=== PATIENT | male | born 1995 | race Caucasian/White ===

== ENCOUNTER 2016-08-29 22:00 | Emergency (ER) | payer OTHER ==
[2016-08-29] MEDS ORDERED: NS 2,000 ML IV ONE (22:10)
--- NOTE | 2016-08-29 22:14 | EDPHY ---
H & P HPI/ROS: HPI CHIEF COMPLAINT: Witnessed seizure HISTORY OF PRESENT ILLNESS: This patient 21-year-old male he denies having any significant medical history does not take any daily medications, presents emergency room by EMS with a witnessed generalized tonic-clonic seizure with a postictal state witnessed by EMS. Per EMS they report that this patient had a generalized tonic-clonic seizure witnessed by bystanders it is reported by roommates that last 84 seconds. Postictal state reported by EMS. No bowel bladder incontinence no tongue laceration. Also noted by EMS that the patient' s heart rate is in the 160s. Patient denies drug use or alcohol use. He does have a history of drinking alcohol occasionally, Xanax use and cocaine use but is adamant that he did not take any this recently. Patient denies history of seizures. Upon arrival here to the emergency room the patient is alert and orient x4, GCS 15, tachycardic in the 150s. Has no medical complaints. Past Medical History: No significant medical history Past Surgical History: No significant surgical history Social History: Occasional alcohol use, history of cocaine and Xanax, nothing recent, [employer] student Family History: Noncontributory ROS REVIEW OF SYSTEMS: A comprehensive 10 point review of systems is otherwise negative aside from elements mentioned in the history of present illness. Exam Constitutional triage nursing summary reviewed, vital signs reviewed, awake/ alert. Eyes normal conjunctivae and sclera, EOMI, pupils are equal round react to light however large 5 mm, reactive to light HENT oropharynx shows no tongue laceration, normal inspection, atraumatic, moist mucus membranes, no epistaxis, neck supple/ no meningismus, no raccoon eyes. Respiratory clear to auscultation bilaterally, normal breath sounds, no respiratory distress, no wheezing. Cardiovascular tachycardic , regular rhythm, no murmur, no edema, distal pulses normal. Gastrointestinal soft, non-tender, no rebound, no guarding, normal bowel sounds, no distension, no pulsatile mass. Genitourinary no CVA tenderness. Musculoskeletal no midline vertebral tenderness, full range of motion, no calf swelling, no tenderness of extremities, no meningismus, good pulses, neurovascularly intact. Skin pink, warm, & dry, no rash, skin atraumatic. Neurologic awake, alert and oriented x 3, AAOx3, moves all 4 extremities equally, motor intact, sensory intact, CN II-XII intact, normal cerebellar, normal vision, normal speech. Psychiatric normal mood/affect. Heme/Lymph/Immune no lymphadenopathy. Differential Diagnosis: Includes but is not limited to in a particular order, seizure, generalized tonic-clonic seizure, drug intoxication, tachycardia, electrolyte disturbance, infection Medical Decision Making: Plan for this patient IV establishment full court monitor, EKG, CT head due to first-time seizure, drug screen Re-evaluation: EKG interpretation by me on record in [employer] system. Impression time of EKG 2206, this is sinus tachycardia rate of 156. CT scan of the head without IV contrast for seizure. The results of the study are negative for acute intracranial abnormality. The study was read by Dr. Shanks I viewed the images myself on the PACS system. 2236: Re-evaluation at this time patient has no complaints. Friends at bedside witnessed this patient a generalized tonic-clonic they report 84 second seizure. They report prior to the seizure he was resting on the couch. Made a loud noise in a turned over and he was having generalized tonic-clonic seizure. Currently at this time heart rate 130s. Tachycardic. Back from CT scan shows nothing acute. Blood work and drug screen are pending. 2251: Labs reviewed show a low bicarb of 10 consistent with probably acute seizure. 2253: Patient's heart rate down to 119. Patient provide a urine sample at this time. ED x-ray chest one view: Negative for acute cardiopulmonary disease. Image interpreted myself. 2304: Patient was able to provide urine sample. Urine pending. Patient tachycardia improving. Blood work review shows anion gap acidosis consistent with most likely lactic acidosis from seizure. Bicarb 10. Witnessed seizure activity by roommates. I will recommend this patient follows up with Neurology do not drive or ride a bicycle until cleared by Neurology. Refrain from drinking alcohol or drug use. Obviously return emergency room if there is further seizure activity. This been no further seizure activity witnessed here in the emergency room. 2317: I discussed return precautions with the patient and roommates. I recommend no driving no riding a bicycle, until cleared by Neurology. Recommend close follow-up with Neurology. Return obviously have evidence of a further seizure. Discussed with remains and patient at bedside. They understand to watch him tonight. Drug screen noted positive for benzos, marijuana cocaine we did not give any benzos here in the emergency room. Most likely cause of acute seizure. Recommend refraining from doing drugs. Source: Patient Constitutional: Initial Vital Signs Temperature (C) 36.9 C 08/29/16 22:05 Heart Rate 164 H 08/29/16 22:05 Respiratory Rate 16 08/29/16 22:05 Blood Pressure 160/101 H 08/29/16 22:05 O2 Sat (%) 96 08/29/16 22:05 O2 Delivery Mode Room Air Allergies/Adverse Reactions: No Known Allergies Allergy (Unverified 08/29/16 22:17) Home Medications: Medication Instructions Recorded NK [No Known Home Meds] 08/29/16 Medical Decision Making - Diagnostics Imaging Results: Imaging Impressions Chest X-Ray 08/29/16 22:11 Impression: Normal. Head CT 08/29/16 22:11 Impression: Normal CT of the head. Findings and recommendations discussed with Jerome Dietrich MD at 2230 hour, . Final report concurs with initial preliminary interpretation. - Data Points Laboratory Results: Laboratory Results 08/29/16 22:00 08/29/16 22:00 08/29/16 08/29/16 08/29/16 22:50 22:00 22:00 WBC RBC Hgb Hct MCV MCH MCHC RDW Plt Count MPV Neut % (Auto) Lymph % (Auto) [place] % (Auto) Eos % (Auto) Baso % (Auto) Nucleat RBC Rel Count Absolute Neuts (auto) Absolute Lymphs (auto) Absolute Monos (auto) Absolute Eos (auto) Absolute Basos (auto) Absolute Nucleated RBC Immature Gran % Immature Gran # PT 14.1 SEC SEC (12.0-15.0) INR 1.10 (0.83-1.16) APTT 25.9 SEC SEC (23.0-38.0) Sodium 143 mEq/L mEq/L (134-144) Potassium 3.4 mEq/L L mEq/L (3.5-5.2) Chloride 94 mEq/L L mEq/L (97-110) Carbon Dioxide 10 mEq/l L mEq/l (22-31) Anion Gap 39 mEq/L H mEq/L (8-16) BUN 6 mg/dL L mg/dL (7-23) Creatinine 1.1 mg/dL mg/dL (0.7-1.3) Estimated GFR > 60 Glucose 159 mg/dL H mg/dL (70-100) Calcium 10.5 mg/dL H mg/dL (8.5-10.4) Magnesium 2.5 mg/dL H mg/dL (1.6-2.3) Total Bilirubin 1.1 mg/dL mg/dL (0.1-1.4) Conjugated Bilirubin 0.6 mg/dL H mg/dL (0.0-0.5) Unconjugated Bilirubin 0.5 mg/dL mg/dL (0.0-1.1) AST 92 IU/L H IU/L (17-59) ALT 78 IU/L H IU/L (21-72) Alkaline Phosphatase 93 IU/L IU/L (38-126) Creatine Kinase 173 IU/L IU/L (0-224) CK-MB (CK-2) Fraction 0.92 ng/mL ng/mL (0-3.19) Troponin I < 0.012 ng/mL ng/mL (0-0.034) Total Protein 9.1 g/dL H g/dL (6.3-8.2) Albumin 5.6 g/dL H g/dL (3.5-5.0) Urine Opiates Screen NEGATIVE (NEGATIVE) Urine Barbiturates NEGATIVE (NEGATIVE) Ur Phencyclidine Scrn NEGATIVE (NEGATIVE) Ur Amphetamine Screen NEGATIVE (NEGATIVE) U Benzodiazepines Scrn NON-NEGATIVE H (NEGATIVE) Urine Cocaine Screen NON-NEGATIVE H (NEGATIVE) U Marijuana (THC) Screen NON-NEGATIVE H (NEGATIVE) Ethyl Alcohol < 10 mg/dL mg/dL (0-10) 08/29/16 22:00 WBC 16.63 10^3/uL H 10^3/uL (3.80-9.50) RBC 5.47 10^6/uL 10^6/uL (4.40-6.38) Hgb 17.5 g/dL g/dL (13.7-17.5) Hct 52.4 % H % (40.0-51.0) MCV 95.8 fL fL (81.5-99.8) MCH 32.0 pg pg (27.9-34.1) MCHC 33.4 g/dL g/dL (32.4-36.7) RDW 12.2 % % (11.5-15.2) Plt Count 250 10^3/uL 10^3/uL (150-400) MPV 10.6 fL fL (8.7-11.7) Neut % (Auto) 56.8 % % (39.3-74.2) Lymph % (Auto) 28.3 % % (15.0-45.0) [place] % (Auto) 14.0 % H % (4.5-13.0) Eos % (Auto) 0.3 % L % (0.6-7.6) Baso % (Auto) 0.2 % L % (0.3-1.7) Nucleat RBC Rel Count 0.0 % % (0.0-0.2) Absolute Neuts (auto) 9.45 10^3/uL H 10^3/uL (1.70-6.50) Absolute Lymphs (auto) 4.70 10^3/uL H 10^3/uL (1.00-3.00) Absolute Monos (auto) 2.32 10^3/uL H 10^3/uL (0.30-0.80) Absolute Eos (auto) 0.05 10^3/uL 10^3/uL (0.03-0.40) Absolute Basos (auto) 0.04 10^3/uL 10^3/uL (0.02-0.10) Absolute Nucleated RBC 0.00 10^3/uL 10^3/uL (0-0.01) Immature Gran % 0.4 % % (0.0-1.1) Immature Gran # 0.07 10^3/uL 10^3/uL (0.00-0.10) PT INR APTT Sodium Potassium Chloride Carbon Dioxide Anion Gap BUN Creatinine Estimated GFR Glucose Calcium Magnesium Total Bilirubin Conjugated Bilirubin Unconjugated Bilirubin AST ALT Alkaline Phosphatase Creatine Kinase CK-MB (CK-2) Fraction Troponin I Total Protein Albumin Urine Opiates Screen Urine Barbiturates Ur Phencyclidine Scrn Ur Amphetamine Screen U Benzodiazepines Scrn Urine Cocaine Screen U Marijuana (THC) Screen Ethyl Alcohol Medications Given: Discontinued Medications Sodium Chloride (Ns) 2,000 mls @ 0 mls/hr IV ONCE ONE PRN Reason: Wide Open Stop: 08/29/16 22:11 Last Admin: 05/16/17 22:22 Dose: 2,000 mls Departure - Departure Disposition: Home, Routine, Self-Care Clinical Impression: Seizure, Cocaine abuse Condition: Good Instructions: New-Onset Seizure in Adults (ED) Additional Instructions: 1. Stay well-hydrated. 2. Do not drive or ride a bicycle into your cleared by Neurology to do so. 3. Refrain from drinking alcohol or doing any drugs. 4. If you have recurrent seizure please return to the emergency room. Referrals: Patient,NotPresent [Unknown] - As per Instructions Hung James MD [Medical Doctor] - As per Instructions
--- NOTE | 2016-08-29 22:14 | CPEKG ---
Heart Rate: 156 RR Interval: 385 P-R Interval: 97 QRSD Interval: 98 QT Interval: 296 QTC Interval: 477 P Leedey: 0 QRS Leedey: 109 T Wave Leedey: -89 EKG Severity - ABNORMAL ECG - EKG Impression: SINUS TACHYCARDIA EKG Impression: PROBABLE RVH W/ SECONDARY REPOL ABNORMALITY EKG Impression: INFERIOR Q WAVES, PROBABLY NORMAL VARIATION EKG Impression: LATERAL Q WAVES, PROBABLY NORMAL VARIATION EKG Impression: ST DEPRESSION, CONSIDER ISCHEMIA, INF LEADS EKG Impression: BORDERLINE PROLONGED QT INTERVAL Electronically Signed By: Jerome Dietrich 29-Aug-2016 23:20:31
[2016-08-29 22:22] VITALS: TEMP 98.4
[2016-08-29 22:23] LABS: % IMMATURE GRANULYOCYTES 0.4 % (0.0-1.1); ABSOLUTE IMMATURE GRANULOCYTES 0.07 10^3/uL (0.00-0.10); ADD DIFF? NO; ADD MORPH? NO; ADD SCAN? NO; ATYPICAL LYMPHOCYTE FLAG 20 (0-99); FRAGMENT RBC FLAG 0 (0-99); HEMATOCRIT 52.4 % (40.0-51.0); HEMOGLOBIN 17.5 g/dL (13.7-17.5); LEFT SHIFT FLG 0 (0-99); LIPEMIA HEMOLYSIS FLAG 80 (0-99); MEAN CELL HEMOGLOBIN CONCENTR. 33.4 g/dL (32.4-36.7); MEAN CELL VOLUME 95.8 fL (81.5-99.8); MEAN PLATELET VOLUME 10.6 fL (8.7-11.7); PLATELET CLUMPS FLAG 0 (0-99); PLATELET COUNT 250 10^3/uL (150-400); RED BLOOD CELL COUNT 5.47 10^6/uL (4.40-6.38); RED CELL DISTRIBUTION WIDTH 12.2 % (11.5-15.2)
[2016-08-29 22:33] LABS: INR 1.1 (0.83-1.16); PROTIME(PATIENT) 14.1 SEC (12.0-15.0)
[2016-08-29 22:34] LABS: APTT 25.9 SEC (23.0-38.0)
[2016-08-29 22:41] LABS: ALANINE AMINOTRANSFERASE 78 IU/L (21-72); ALBUMIN 5.6 g/dL (3.5-5.0); ALKALINE PHOSPHATASE 93 IU/L (38-126); ANION GAP 39 mEq/L (8-16); ASPARTATE AMINOTRANSFERASE 92 IU/L (17-59); BILIRUBIN,TOTAL 1.1 mg/dL (0.1-1.4); BILIRUBIN-CONJUGATED 0.6 mg/dL (0.0-0.5); BILIRUBIN-UNCONJUGATED 0.5 mg/dL (0.0-1.1); CALCIUM 10.5 mg/dL (8.5-10.4); CARBON DIOXIDE 10 mEq/l (22-31); CHLORIDE 94 mEq/L (97-110); CREATININE 1.1 mg/dL (0.7-1.3); GLOMERULAR FILTRATION RATE > 60; GLUCOSE 159 mg/dL (70-100); MAGNESIUM 2.5 mg/dL (1.6-2.3); POTASSIUM 3.4 mEq/L (3.5-5.2); SODIUM 143 mEq/L (134-144); TOTAL PROTEIN 9.1 g/dL (6.3-8.2)
[2016-08-29 22:52] LABS: CREATINE KINASE-MB FRACTION 0.92 ng/mL (0-3.19); TROPONIN I < 0.012 ng/mL (0-0.034)
[2016-08-29 23:09] LABS: ETHANOL SERUM < 10 mg/dL (0-10)
[2016-08-29 23:56] VITALS: BP 133/82; PULSE 100; RESP 16; O2SAT 96
== END 2016-08-29 23:56 | disposition home or self-care (01) ==
DX: R56.9 Unspecified convulsions (principal); F14.10 Cocaine abuse, uncomplicated
CPT/HCPCS: 80305; G0480

== ENCOUNTER 2017-01-24 21:33 | Emergency (ER) | payer BC, OTHER ==
--- NOTE | 2017-01-24 21:44 | CPEKG ---
Heart Rate: 139 RR Interval: 432 P-R Interval: 124 QRSD Interval: 98 QT Interval: 300 QTC Interval: 456 P Wilton: 74 QRS [place]: 100 T Wave [place]: -64 EKG Severity - ABNORMAL ECG - EKG Impression: SINUS TACHYCARDIA EKG Impression: BORDERLINE RIGHT AXIS DEVIATION EKG Impression: REPOL ABNRM SUGGESTS ISCHEMIA, DIFFUSE LEADS Electronically Signed By: Amita Barber 25-Jan-2017 05:35:57
[2017-01-24] MEDS ORDERED: LORazepam 2 MG/ML INJ IVP ONE (22:04)
[2017-01-24] MEDS ORDERED: NS 1,000 ML IV ONE ×2 (22:05→22:38)
[2017-01-24 22:13] LABS: % IMMATURE GRANULYOCYTES 0.4 % (0.0-1.1); ABSOLUTE IMMATURE GRANULOCYTES 0.07 10^3/uL (0.00-0.10); ADD DIFF? NO; ADD MORPH? NO; ADD SCAN? NO; ATYPICAL LYMPHOCYTE FLAG 10 (0-99); FRAGMENT RBC FLAG 0 (0-99); HEMATOCRIT 49.2 % (40.0-51.0); HEMOGLOBIN 17.1 g/dL (13.7-17.5); LEFT SHIFT FLG 0 (0-99); LIPEMIA HEMOLYSIS FLAG 90 (0-99); MEAN CELL HEMOGLOBIN 32.9 pg (27.9-34.1); MEAN CELL HEMOGLOBIN CONCENTR. 34.8 g/dL (32.4-36.7); MEAN CELL VOLUME 94.8 fL (81.5-99.8); MEAN PLATELET VOLUME 10.2 fL (8.7-11.7); PLATELET CLUMPS FLAG 0 (0-99); PLATELET COUNT 360 10^3/uL (150-400); RED BLOOD CELL COUNT 5.19 10^6/uL (4.40-6.38)
--- NOTE | 2017-01-24 22:14 | EDPHY ---
H & P Stated Complaint: SEIZURE WHILE SITTING ON [employer], LAST SZ 1 YR AGO Time Seen by Provider: 01/24/17 22:01 HPI/ROS: HPI The patient presents with seizure, just prior to arrival, brought in by EMS. He was sitting on a beanbag chair, watching a baseball game when he began to feel like something was off. He then had witnessed tonic-clonic seizure by roommates lasting for about 1 minutes, resolving on its own. By the time paramedics had arrived, the patient was awake though feeling somewhat disoriented. He currently denies any complaints. He says he has not had much of an appetite for several months now, but has been drinking plenty of fluids today. He takes Xanax and last use this about 2 weeks ago. He denies any drug or alcohol use. He was seen in the emergency department in August of this year for first-time seizure. CT head was unremarkable. His urine toxicology was possible for benzodiazepines and cocaine. He followed up as an outpatient with Dr. James.. REVIEW OF SYSTEMS Constitutional: No fever, no chills. Eyes: No discharge. ENT: No sore throat. Cardiovascular: No chest pain, no palpitations. Respiratory: No cough, no shortness of breath. Gastrointestinal: No abdominal pain, no vomiting. Genitourinary: No hematuria. Musculoskeletal: No back pain. Skin: No rashes. Neurological: No headache. PMHx: 1 prior seizure in August Soc Hx: [employer] student, history of cocaine and Xanax use PHYSICAL General Appearance: Alert, no distress Eyes: Pupils equal and round no pallor or injection ENT, Mouth: Mucous membranes moist Respiratory: There are no retractions, lungs are clear to auscultation Cardiovascular: Regular rate and rhythm Gastrointestinal: Abdomen is soft and non-tender, no masses, bowel sounds normal Neurological: A&O, moves all extremities Skin: Warm and dry, no rashes Musculoskeletal: Neck is supple non tender Extremities: symmetrical, full range of motion Psychiatric: Patient is oriented X 3, there is no agitation Source: Patient, EMS Exam Limitations: No limitations - Personal History Current Tetanus/Diphtheria Vaccine: Yes - Medical/Surgical History Hx Asthma: No Hx Chronic Respiratory Disease: No Hx Diabetes: No Hx Cardiac Disease: No Hx Renal Disease: No Hx Cirrhosis: No Hx Alcoholism: No Hx HIV/AIDS: No Hx Splenectomy or Spleen Trauma: No Other PMH: SEIZURE - Social History Smoking Status: Never smoked Constitutional: Initial Vital Signs Temperature (C) 36.8 C 01/24/17 21:33 Heart Rate 142 H 01/24/17 21:33 Respiratory Rate 20 01/24/17 21:33 Blood Pressure 146/98 H 01/24/17 21:33 O2 Sat (%) 95 01/24/17 21:33 O2 Delivery Mode Room Air Allergies/Adverse Reactions: No Known Allergies Allergy (Unverified 08/29/16 22:17) Home Medications: Medication Instructions Recorded levETIRAcetam [Keppra 500 mg (*)] 500 mg PO BID #30 tab 01/24/17 Medical Decision Making - Diagnostics EKG Interpretation: EKG: Complete interpretation has been separately recorded in the [employer] archive. Summary impression: Sinus tachycardia, rate of 140 Differential Diagnosis: This is a 21-year-old male with history of seizure 5 months ago for the 1st time who now presents with 2nd seizure, now resolved, no longer postictal. Here he, he is tachycardic, otherwise exam is unremarkable. Differential diagnosis includes epilepsy, benzodiazepine withdrawal, alcohol withdrawal, substance abuse. In the emergency department, the patient was observed for several hours. Labs were checked and initially did reveal what appeared to be an anion gap acidosis with low carbon dioxide. Because of this he was given a 2 L fluid bolus and labs were repeated, and anion gap had closed from 36-20. I suspect this is the lactic acidosis from seizure. Urine toxicology was unremarkable consistent with patient's history. I consulted with [facility] and we decided to start the patient on Keppra, 1 g here and then 500 mg twice daily. He will need additional workup for his seizures. He has previously been referred to Dr. James so I will refer him again and I have explained that he will likely need an MRI and EEG for further evaluation. I have told him that he cannot drive a car until further evaluation. - Data Points Laboratory Results: Laboratory Results 01/24/17 21:45 01/24/17 21:45 01/24/17 01/24/17 01/24/17 23:27 23:15 21:45 WBC RBC Hgb POC Hgb 14.3 gm/dL gm/dL (13.7-17.5) Hct POC Hct 42 % % (40-51) MCV MCH MCHC RDW Plt Count MPV Neut % (Auto) Lymph % (Auto) [place] % (Auto) Eos % (Auto) Baso % (Auto) Nucleat RBC Rel Count Absolute Neuts (auto) Absolute Lymphs (auto) Absolute Monos (auto) Absolute Eos (auto) Absolute Basos (auto) Absolute Nucleated RBC Immature Gran % Immature Gran # POC Sodium 137 mEq/L mEq/L (134-144) Sodium 137 mEq/L mEq/L (134-144) POC Potassium 3.2 mEq/L L mEq/L (3.3-5.0) Potassium 3.5 mEq/L mEq/L (3.5-5.2) POC Chloride 102 mEq/L mEq/L (97-110) Chloride 94 mEq/L L mEq/L (97-110) Carbon Dioxide 7 mEq/l L* mEq/l (22-31) Anion Gap 36 mEq/L H mEq/L (8-16) POC BUN 9 mg/dL mg/dL (7-23) BUN 9 mg/dL mg/dL (7-23) Creatinine 1.2 mg/dL mg/dL (0.7-1.3) POC Creatinine 0.8 mg/dL mg/dL (0.7-1.3) Estimated GFR > 60 Glucose 137 mg/dL H mg/dL (70-100) POC Glucose 83 mg/dL mg/dL (70-100) Calcium 10.7 mg/dL H mg/dL (8.5-10.4) Phosphorus 6.4 mg/dL H mg/dL (2.5-4.5) Urine Opiates Screen NEGATIVE (NEGATIVE) Urine Barbiturates NEGATIVE (NEGATIVE) Ur Phencyclidine Scrn NEGATIVE (NEGATIVE) Ur Amphetamine Screen NEGATIVE (NEGATIVE) U Benzodiazepines Scrn NEGATIVE (NEGATIVE) Urine Cocaine Screen NEGATIVE (NEGATIVE) U Marijuana (THC) Screen NON-NEGATIVE H (NEGATIVE) Ethyl Alcohol < 10 mg/dL mg/dL (0-10) 01/24/17 21:45 WBC 15.72 10^3/uL H 10^3/uL (3.80-9.50) RBC 5.19 10^6/uL 10^6/uL (4.40-6.38) Hgb 17.1 g/dL g/dL (13.7-17.5) POC Hgb Hct 49.2 % % (40.0-51.0) POC Hct MCV 94.8 fL fL (81.5-99.8) MCH 32.9 pg pg (27.9-34.1) MCHC 34.8 g/dL g/dL (32.4-36.7) RDW 12.0 % % (11.5-15.2) Plt Count 360 10^3/uL 10^3/uL (150-400) MPV 10.2 fL fL (8.7-11.7) Neut % (Auto) 48.3 % % (39.3-74.2) Lymph % (Auto) 42.1 % % (15.0-45.0) [place] % (Auto) 8.3 % % (4.5-13.0) Eos % (Auto) 0.3 % L % (0.6-7.6) Baso % (Auto) 0.6 % % (0.3-1.7) Nucleat RBC Rel Count 0.0 % % (0.0-0.2) Absolute Neuts (auto) 7.59 10^3/uL H 10^3/uL (1.70-6.50) Absolute Lymphs (auto) 6.62 10^3/uL H 10^3/uL (1.00-3.00) Absolute Monos (auto) 1.30 10^3/uL H 10^3/uL (0.30-0.80) Absolute Eos (auto) 0.05 10^3/uL 10^3/uL (0.03-0.40) Absolute Basos (auto) 0.09 10^3/uL 10^3/uL (0.02-0.10) Absolute Nucleated RBC 0.00 10^3/uL 10^3/uL (0-0.01) Immature Gran % 0.4 % % (0.0-1.1) Immature Gran # 0.07 10^3/uL 10^3/uL (0.00-0.10) POC Sodium Sodium POC Potassium Potassium POC Chloride Chloride Carbon Dioxide Anion Gap POC BUN BUN Creatinine POC Creatinine Estimated GFR Glucose POC Glucose Calcium Phosphorus Urine Opiates Screen Urine Barbiturates Ur Phencyclidine Scrn Ur Amphetamine Screen U Benzodiazepines Scrn Urine Cocaine Screen U Marijuana (THC) Screen Ethyl Alcohol Medications Given: Discontinued Medications Sodium Chloride (Ns) 1,000 mls @ 0 mls/hr IV EDNOW ONE; Wide Open PRN Reason: Protocol Stop: 01/24/17 22:06 Last Admin: 01/24/17 22:05 Dose: 1,000 mls Sodium Chloride (Ns) 1,000 mls @ 0 mls/hr IV EDNOW ONE; Wide Open PRN Reason: Protocol Stop: 01/24/17 22:39 Last Admin: 01/24/17 22:48 Dose: 1,000 mls Levetiracetam (Keppra) 1,000 mg PO EDNOW ONE Stop: 01/24/17 23:56 Last Admin: 01/25/17 00:10 Dose: 1,000 mg Lorazepam (Ativan Injection) 1 mg IVP EDNOW ONE Stop: 01/24/17 22:05 Last Admin: 01/24/17 23:01 Dose: Not Given Point of Care Test Results: 01/24/17 23:15 POC Sodium 137 POC Potassium 3.2 L POC Chloride 102 POC BUN 9 POC Creatinine 0.8 POC Glucose 83 Departure - Departure Disposition: Home, Routine, Self-Care Clinical Impression: Seizure Condition: Good Instructions: Epilepsy (ED) Additional Instructions: It is important that you follow up with your neurologist in the next few days. You most likely need to undergo further testing for your seizures. You should not drive a car. Referrals: Hung James MD [Medical Doctor] - As per Instructions Prescriptions: levETIRAcetam [Keppra 500 mg (*)] 500 mg PO BID #30 tab
[2017-01-24 22:18] LABS: CALCIUM 10.7 mg/dL (8.5-10.4); CHLORIDE 94 mEq/L (97-110); CREATININE 1.2 mg/dL (0.7-1.3); ETHANOL SERUM < 10 mg/dL (0-10); GLOMERULAR FILTRATION RATE > 60; GLUCOSE 137 mg/dL (70-100); POTASSIUM 3.5 mEq/L (3.5-5.2); SODIUM 137 mEq/L (134-144)
[2017-01-24 22:34] LABS: ANION GAP 36 mEq/L (8-16)
[2017-01-24 22:36] LABS: CARBON DIOXIDE 7 mEq/l (22-31)
[2017-01-24 22:52] VITALS: RESP 14
[2017-01-24] MEDS ORDERED: levETIRAcetam 500 MG TAB PO ONE (23:55)
[2017-01-25 00:16] VITALS: BP 122/71; PULSE 81; TEMP 97.9; O2SAT 96
== END 2017-01-25 00:15 | disposition home or self-care (01) ==
LOC: EDUNIT#
DX: G40.909 Epilepsy, unspecified, not intractable, without status epilepticus (principal); E86.9 Volume depletion, unspecified
CPT/HCPCS: 80305; 82947-QW; G0480; J2060